=== PATIENT | male | born 1930 | race Caucasian/White ===

== ENCOUNTER → 2018-06-26 | Outpatient (CLI) | payer MEDICARE, OTHER ==
[~2018-06-26] MED LIST: ALDACTONE 25MG25 M1 PO; ALDACTONE 25MG25 MG PO; ALDACTONE50 MG PO; ASPIR-LOW81 MG PO; ASPIRIN 32325 MG/TAB PO; ASPIRIN 81M81 MG/TA2 PO; AVAPRO300 M1 PO; AVAPRO300 MG PO; CEFTIN500 MG PO; COZAAR100 MG PO; FEXOFENADINE60 MG PO; FISH OIL CONC1000 MG PO; FLOMAX 0.40.4 MG/CAP PO; LASIX 20MG TABL20 MG PO; LASIX 40MG TABL40 MG PO; LEVOXYL0.1 MG PO; LISINOPRIL5 MG PO; LOPRESSOR 225 MG/TAB PO; MULTIPLE VITAMI1 TAB PO; MVI PO; NORCO 325 MG-51 TAB PO; OCUVITE1 TA1 PO; PACERONE200 MG PO; PACERONE400 MG PO; PLAVIX 75MG TAB75 MG PO; PRAVACHOL 40MG40 MG PO; PRAVASTATIN20 MG PO; PRINIVIL2.5 MG PO; TOPROL XL 50MG50 MG PO; TOPROL XL50 MG PO; TYLENOL 8 HR PO; VITAMIN C500 MG PO; VITAMIN D1000 IU PO; ZANTAC 150MG T150 MG PO
== END ==
LOC: COL.RAD 10:35
DX: I65.23 Occlusion and stenosis of bilateral carotid arteries (principal); I25.10 Atherosclerotic heart disease of native coronary artery without angina pectoris; I08.3 Combined rheumatic disorders of mitral, aortic and tricuspid valves

== ENCOUNTER 2019-02-11 15:19 | Inpatient (IN) | payer MEDICARE ==
[2019-02-11] VITALS (109 sets, daily range): BP systolic 121; BP diastolic 80; PULSE 62; TEMP 98.6; O2SAT 73–100
[~2019-02-11] VITALS: Ht 182.9 cm; Wt 96.7 kg
[2019-02-11 15:57] LABS: BASO % 0.2 % (0.0-2.0); GRAN # 11.8 (1.4-6.5); GRAN % 85.1 % (42.2-75.2); HEMATOCRIT 49.7 % (42.0-52.0); HEMOGLOBIN 15.3 g/dl (13.5-18.0); LYMPH # 0.8 (1.2-3.4); LYMPH % 5.7 % (20.0-51.0); MEAN CELL VOLUME 108 fl (80.0-100.0); MEAN CORPUSCULAR HEMOGLOBIN 33 pg (27.0-31.0); MEAN CORPUSCULAR HGB CONC 31 g/dl (33.0-37.0); MONO # 1.2 (0.1-0.6); MONO % 8.4 % (1.7-9.3); PLATELET COUNT 210 K/mm3 (130-400); RED BLOOD COUNT 4.59 M/mm3 (4.20-5.60); REDCELL DISTRIBUTION WIDTH-CV 15.1 % (11.5-14.5)
[2019-02-11 16:15] LABS: ALBUMIN 3.6 gm/dL (3.5-5.0); BILIRUBIN,TOTAL 2.6 mg/dL (0.0-1.0); C-REACTIVE PROTEIN 6.7 mg/dL (0.0-0.9); CALCIUM 8.8 mg/dL (8.4-10.2); CREATININE, serum 1.84 (0.66-1.25); POTASSIUM 4.9 mmol/L (3.4-5.0); TOTAL PROTEIN 7.1 gm/dL (6.4-8.2)
[2019-02-11 16:47] LABS: TROPONIN-I 0.297 ng/mL (0.000-0.035)
[2019-02-11 16:50] LABS: ARTERIAL BLD GAS TCO2 CT 33.3; ARTERIAL BLOOD GAS BASE EXCESS 4.8 (-2-2); ARTERIAL BLOOD GAS HCO3 31.6 meq/L (22-26); ARTERIAL BLOOD GAS PCO2 55.6 mmHg (35-45); ARTERIAL BLOOD GAS PO2 84.7 mmHg (80-100); ARTERIAL BLOOD GAS pH 7.37 (7.35-7.45)
[2019-02-11 18:49] LABS: COLLECTION METHOD CLEAN CATCH
[2019-02-11 19:06] LABS: MUCOUS Present /lpf; PH 5 (5-8); SQUAMOUS EPITHELIAL 0-2 /hpf; URINE APPEARANCE Clear; URINE BACTERIA None Seen /hpf; URINE BILIRUBIN Negative (NEGATIVE); URINE BLOOD 1+ (NEGATIVE); URINE COLOR Amber; URINE GLUCOSE Negative (NEGATIVE); URINE KETONE Negative (NEGATIVE); URINE LEUKOCYTE ESTERASE Negative (NEGATIVE); URINE NITRATE Negative (NEGATIVE); URINE PROTEIN(semi-quant) 1+ (NEGATIVE); URINE UROBILINOGEN >=4.0 mg/dL (NEGATIVE)
--- NOTE | 2019-02-11 19:48 | NUR ---
Bedside report received from ANNETTE Leroy in the ED. Patient will be brought over shortly.
--- NOTE | 2019-02-11 20:10 | NUR ---
patient arrives at this time via ED cart. Patient transferred to unit bed via slide board. Patient is only responsive to painful stimuli and is not following commands. Patient was brought over on 4L NC, increased to 8L OM. Assessment complete. lungs are clear in upper lobes bilaterally with diminished middle lobe and bases being absent. Patient is having labored breathing and O2 sats have been dropping since arrival. Patient has a large amount of abdominal muscle use to breathe. HR and rhythm are regular with normal S1 and S2 heard. Bowel sounds are hypoactive. Patient has a urinary catheter in place with blood coming around the catheter. Gross hematuria noted in catheter tubing. Patient's catheter was pulled on in transfer and had a traumatic insertion per ANNETTE Leroy in ED. Patient's radial pulses are palable with popliteal pulses only audible by doppler. Right pedal pulse is audible by doppler, left pedal is absent. Patient has multiple wounds to include a stage 3 pressure ulver on his buttocks measuring 5.5in by 7in. Wound cleaned and 2 mepilex dressing placed. Groin is excoriated in creases of the thighs and around the testicles. Patient is also excoriated underthe breasts, dirt was cleaned away to find open red tissue underneath. Patient has some scabbed scratches to his lower abdomen. Bilateral shins have some open and some scabbed abrasions. Patient has +3 edema to bilateral lower extremities. Dr Hamilton comes to the bedside. Patient is now unresponsive even to painful stimuli, orders for BiPAP given. Patient placed on BiPAP and resting. Orders for a central line to be placed. Dr Vega has already been notified. Nothing further at this time. Will continue to monitor.
[2019-02-11 20:38] LABS: INR 1.7 (0.8-3.0); PROTHROMBIN TIME 20.1 SECONDS (9.7-12.8)
--- NOTE | 2019-02-11 21:23 | NUR ---
Dr Vega here at this time to place central line. Patient is starting to wake up now and immediately pulls all cords and wires, gown, and bipap off. Attempted to redirect patient with no success. Mitts placed on patient at this time. Assisted provider with central line placement. Time out complete.
[2019-02-12] VITALS (732 sets, daily range): BP systolic 90–170; BP diastolic 60–85; PULSE 59–103; TEMP 97.8–98.6; O2SAT 44–100
--- NOTE | 2019-02-12 | NUR ---
Assessment complete at this time with no changes from previous exam. Patient has appeared to stop bleeding from around the catheter. Bloody urine present in the tubing. Patient is restless and agitated, but not following commands. Patient is more alert with incomprehensible noises. Patient continually tries to pull off mitts and bipap. Patient has no Current needs. Will continue to monitor. Call light within reach.
--- NOTE | 2019-02-12 04:00 | NUR ---
Assessment complete at this time with no changes from previous exam. Patient was started on dopamine with pressures remaining stable. HR is elevated but also stable below the 110bpm limit. Patient is more responsive than he has been since arrival. He answers yes and no questions appropriately and is following commands. No complaints of pain. Will continue to monitor.
--- NOTE | 2019-02-12 04:45 | NUR ---
Patient is the most alert he has been all night and is partially oriented. He responds appropriately to questions and confirms understanding when being told what is going on with his care. Mitts removed at this time as patient is no longer trying to pull at things or remove the mask.
--- NOTE | 2019-02-12 05:00 | NUR ---
Patient is continuing to have decreased urine output. With the help of ANNETTE Mcmillan patient's catheter is flushed multiple times with only return being what was instilled. Bladder scan performed with machine reporting 467ml present. Continued to try and clear the tubing. ANNETTE Deshpande, house repairer then is present to assist. After multiple flushes and position changes, there is finally some flow of gross hematuria. Bladder scanner rechecked with 197 present. Will continue to monitor. Call light within reach.
[2019-02-12 06:34] LABS: ALBUMIN 3.2 gm/dL (3.5-5.0); BASO % 0.1 % (0.0-2.0); BILIRUBIN,TOTAL 3.2 mg/dL (0.0-1.0); CALCIUM 8.7 mg/dL (8.4-10.2); CREATININE, serum 1.72 (0.66-1.25); GRAN # 15.2 (1.4-6.5); GRAN % 89.9 % (42.2-75.2); HEMOGLOBIN 14.2 g/dl (13.5-18.0); LYMPH # 0.6 (1.2-3.4); LYMPH % 3.3 % (20.0-51.0); MEAN CELL VOLUME 106 fl (80.0-100.0); MEAN CORPUSCULAR HEMOGLOBIN 33 pg (27.0-31.0); MEAN CORPUSCULAR HGB CONC 31 g/dl (33.0-37.0); MEAN PLATELET VOLUME 10.1 fl (7.4-10.4); MONO % 5.7 % (1.7-9.3); PLATELET COUNT 192 K/mm3 (130-400); POTASSIUM 4.7 mmol/L (3.4-5.0); RED BLOOD COUNT 4.34 M/mm3 (4.20-5.60); REDCELL DISTRIBUTION WIDTH-CV 14.8 % (11.5-14.5); TOTAL PROTEIN 6.4 gm/dL (6.4-8.2)
--- NOTE | 2019-02-12 07:30 | NUR ---
Report received from Urszula BRYANT and care resumed.
--- NOTE | 2019-02-12 07:36 | NUR ---
Bedside report given to ANNETTE Bae. Dr Luke at the bedside at this time to examine patient.
--- NOTE | 2019-02-12 08:39 | NUR ---
Assessment complete. See charting. Dr Luke in to see pt concerning blood in catheter. Will just continue to monitor at this time as long as continues to drain. Dr Tariq on unit and notified of consult. Pt opens eyes to speech and follows simple commands like squeezing my hands. AM labs and meds reviewed. Will continue to follow.
--- NOTE | 2019-02-12 09:53 | NUR ---
Dr Tariq in to see pt and spoke with 3 of the children regarding plan of care. Consult for Ember Amezcua also received. Echo completed. Will continue to follow.
--- NOTE | 2019-02-12 11:40 | NUR ---
Dr Reyes in to see pt at this time.
--- NOTE | 2019-02-12 14:15 | NUR ---
The patient's family had a pallative care meeting with Dr. Tariq and Ember Amezcua, Pallative Care Nurse. Ember inquired about DPOA-HC and family provided a copy and was placed in the chart. The patient's daughter, Higinio and patient's son, Jose Luis are designated. Ember spoke to the family about [facility] and they were open to sending a referral. Ember faxed referral. [facility] sent information to Dr. Fajardo to be accepting physician, awaiting response. The patient's nurse Kathia reports that the family would like to go on comfort measures and transfer to the [facility] on 02/13/19, because the family is waiting for other family members to arrive. ENVIRONMENTAL ANALYST student contacted Brad at [facility]. Brad reports they are waiting on a reply from the weekend intake social media sr strategy manager. ENVIRONMENTAL ANALYST student met with patient's daughter to give her an update. Ember provided a comfort care quilt this day. guest services agent will continue to follow to ensure a safe discharge.
[2019-02-12] MEDS ORDERED: ROXANOL 20MG20 MG/ML PO (14:54)
[2019-02-12] MEDS ORDERED: LORAINT SL (14:55)
[2019-02-12] MEDS ORDERED: CUVPOSA1 MG/5 ML PO (14:56)
[2019-02-12] MEDS ORDERED: ZOFRAN ODT4 MG PO (14:57)
--- NOTE | 2019-02-12 15:26 | NUR ---
Received malnutrition alert on admission. Pt placed on confort meausures. Nutrition assessment not appropriate.
--- NOTE | 2019-02-12 15:30 | NUR ---
Brad from the [facility] reports they can accept the patient 02/13. [facility] prefer the patient arrive by 1330 to do the intake. Discharge orders and med list to be faxed to . The nurse to nurse number is . The receiving physician will be Dr. Chacho Fajardo. TAI Coppola sent medications electronically to [facility] and provided a script to send to [facility] and to the [facility]. CEMENT WORKER student sent script to [facility] and to [facility]. Stu with [facility] reports they can transport the patient at 1300 on 02/13. CEMENT WORKER student collaborated the above information with the patient's family, patient's nurse, and PA, all were in agreeance. phlebotomy services representative will continue to follow.
--- NOTE | 2019-02-12 17:28 | NUR ---
Pt was provided with comfort quilt as family is iplanning to continue supportive care until tomorrow when remaining family can come and then plan is for transfer to [facility].
--- NOTE | 2019-02-12 19:07 | NUR ---
Bedside report received from ANNETTE Bae. Medications and lines confirmed. Transfer of care.
--- NOTE | 2019-02-12 19:24 | NUR ---
Report given to Urszula BRYANT and care transfered.
--- NOTE | 2019-02-12 20:00 | NUR ---
Patient sleeping comfortably on the Bipap at this time. Patient awakens to name and is following commands. Patient is alert to self, but is unable to answer any other questions correctly. Lungs are clear in the upper lobes and diminished bilaterally. Bases bilaterally are absent. Patient is having very little air movement. HR and rhythm are regular with normal S1 and S2 heard. Patient is mostly Vpaced. Bowel sounds are active x4. Radial pulses are palpable, but lower extremities are only heard with Doppler. Patient has no complaints of pain. Repositioned for comfort. Patient requests water, explained that because he is not breathing well, it would not be safe to take off the bipap to give him any right now. Patient nods his head in understanding. No further needs. Will continue to monitor. Call light within reach.
[2019-02-13] VITALS (464 sets, daily range): BP systolic 100–116; BP diastolic 61–98; PULSE 80–94; TEMP 97.8–98.6; O2SAT 85–100
--- NOTE | 2019-02-13 | NUR ---
Patient continues to rest on the BiPAP. Awakens to name. No complaints of pain. Vitals remain stable. Repositioned for comfort. Will continue to monitor. Call light within reach.
--- NOTE | 2019-02-13 04:00 | NUR ---
Patient resting comfortably on Bipap, awakens to name. Vitals obtained and remain stable. No complaints of pain. oral care provided with moist sponges. Patient asks when the mask will come off, let him know that it would come off later today. Repositioned for comfort. No further needs. Call light within reach.
--- NOTE | 2019-02-13 07:00 | NUR ---
Pt awake and alert, opens eyes to morning verbal greeting. Pt oriented to person, place, family members names/relationships; disoriented to situation.
--- NOTE | 2019-02-13 07:54 | NUR ---
Report given to ANNETTE Chahal.
--- NOTE | 2019-02-13 09:15 | NUR ---
Family and MD Amy present for family meeting. Plan of care: resume all care until Hospice comes to pick and shovel worker pt at 1300. All family in agreement. Questions invited and answered
--- NOTE | 2019-02-13 11:03 | NUR ---
PT OFF BIPAP AT THIS TIME. PLEASE SEE ADDITIONAL CHARTING.
--- NOTE | 2019-02-13 13:14 | NUR ---
EMS personnel present for transfer to [facility]. Report phoned to ANNETTE Guillen at [phone], all questions answered. IV access discontinued. Pt transfered to stretcher without difficulty. Family at bedside during depature - family stated they were going to eat lunch then meet pt at Hospice [facility] afterwards. Pt remains AOx3.
--- NOTE | 2019-02-13 14:09 | NUR ---
SW was contacted by Patients nurse and reminded about patients discharge at 1:00 to [facility]. ELSIE contacted [facility] who confirmed the time for order picker/assembler. ELSIE contacted "Mindy," who was the reciving nurse at phone number to confirm time of receipt of patient, and to inform her that dispostion forms would be faxed as soon as they were completed. Nurse asked for a DNR to be signed. SW completed EMS forms requested, and spoke with Patient (family was present, Higinio, patients DPOA, her brothers, patients grandson and brother) Patient gave permission for family to be present during discussion. Patient signed DNR, documents faxed to [facility] receiving nurse. EMS arrived at 1:00 and claimed patient for transport.
== END 2019-02-13 13:14 | disposition hospice, inpatient (51) | DRG 853 ==
LOC: COL.ER 15:19 → ICU 18:09
PROVIDERS: Emergency Medicine
PROC: 0JH60WZ Insertion of Totally Implantable Vascular Access Device into Chest Subcutaneous Tissue and Fascia, Open Approach (ICD-10-PCS; principal; 2019-02-11)
PROC: 05HM33Z Insertion of Infusion Device into Right Internal Jugular Vein, Percutaneous Approach (ICD-10-PCS; 2019-02-11)
PROC: 5A09457 Assistance with Respiratory Ventilation, 24-96 Consecutive Hours, Continuous Positive Airway Pressure (ICD-10-PCS; 2019-02-11)
DX: A40.9 Streptococcal sepsis, unspecified (principal); R57.0 Cardiogenic shock; R65.21 Severe sepsis with septic shock; I21.4 Non-ST elevation (NSTEMI) myocardial infarction; I50.23 Acute on chronic systolic (congestive) heart failure; J96.01 Acute respiratory failure with hypoxia; I42.9 Cardiomyopathy, unspecified; I13.0 Hypertensive heart and chronic kidney disease with heart failure and stage 1 through stage 4 chronic kidney disease, or unspecified chronic kidney disease; E87.2 Acidosis; N17.9 Acute kidney failure, unspecified; T83.83XA Hemorrhage due to genitourinary prosthetic devices, implants and grafts, initial encounter; M48.56XA Collapsed vertebra, not elsewhere classified, lumbar region, initial encounter for fracture; J96.12 Chronic respiratory failure with hypercapnia; N18.3 Chronic kidney disease, stage 3 (moderate); F41.9 Anxiety disorder, unspecified; Z66 Do not resuscitate; R79.1 Abnormal coagulation profile; I25.10 Atherosclerotic heart disease of native coronary artery without angina pectoris; I48.91 Unspecified atrial fibrillation; L89.150 Pressure ulcer of sacral region, unstageable; Z79.01 Long term (current) use of anticoagulants; Z79.02 Long term (current) use of antithrombotics/antiplatelets; Z79.82 Long term (current) use of aspirin
CPT/HCPCS: 99223-AI; 99232-AI; 99239; A4216; J0692; J1265; J2543; J3370; J7030; J7050